=== PATIENT | female | born 1995 | race African-American/Black ===

== ENCOUNTER 2020-03-10 23:50 | Inpatient (IN) ==
[2020-03-11] MEDS ORDERED: OXYTOCIN/0.9 % SODIUM CHLORIDE 30 UNITS/500 ML BAG IV ONE (00:23)
[2020-03-11] MEDS ORDERED: ONDANSETRON 4 MG TAB.RAPDIS PO PRN (00:23)
[2020-03-11] MEDS ORDERED: RINGER'S SOLUTION,LACTATED 1,000 ML IV ONE (00:23)
[2020-03-11] MEDS ORDERED: LIDOCAINE HCL 50 ML VIAL PERI PRN (00:23)
[2020-03-11 00:58] LABS: Cocaine Ur Negative (NEGATIVE); Urine Barbiturate Negative (NEGATIVE); Urine Benzodiazepines Negative (NEGATIVE); Urine Opiates Negative (NEGATIVE); Urine PCP Negative (NEGATIVE); Urine THC Negative (NEGATIVE)
[2020-03-11] MEDS ORDERED: NALOXONE HCL 1 MG/1 ML SYRG IV PRN (01:02)
[2020-03-11] MEDS ORDERED: ONDANSETRON HCL/PF 2 MG/ML VIAL IV PRN ×2 (01:02→04:10)
[2020-03-11] MEDS ORDERED: BUPIVACAINE HCL/0.9 % NACL/PF 250 ML EP PRN (01:02)
[2020-03-11] MEDS ORDERED: fentaNYL CITRATE/PF 50 MCG/ML AMPUL IT SCH (01:15)
[2020-03-11] MEDS ORDERED: RINGER'S SOLUTION,LACTATED 1,000 ML IV PRN (01:41)
[2020-03-11 01:58] LABS: Hematocrit 33.2 % (37.0-47.0); Hemoglobin 11.7 gm/dL (12.5-16.0); Mean Cell Volume 82.4 fl (78-100); Mean Corpuscular Hgb Conc 35.2 g/dl (32-36); Mean Platelet Volume 11.9 fl (8-12.5); Neutrophil # 7.1 K/mm3 (1.3-6.0); Neutrophil % 65.3 % (42-75.0); Platelet Count 204 K/mm3 (150-450); Red Blood Count 4.03 M/mm3 (4.2-5.4); Red Cell Distribution Width 12.9 % (11.5-14.0); White Blood Count 10.8 K/mm3 (4.0-10.5)
--- NOTE | 2020-03-11 02:10 | HP ---
Chief Complaint - Chief Complaint Date of Service: 03/11/20 Time of Service: 01:43 Chief Complaint: LOF, painful contractions History of Present Illness: 24 yo at 38w1d presents to L&D compliaining of ROM around 2300 last night with painful contractions starting afterward. Called by nurse to confirm position of baby. Bedside ultrasound shows baby in breech presentation. This complicated by breech presentation in labor with ROM, ADHD, anemia, smoker, and THC use in 1st trimester. Rh positive Rubella immune GBS negative. Medical History (Last Reviewed 03/11/20 @ 02:00 by Kulwant Cummins DO) ADHD (attention deficit hyperactivity disorder) Facial tic Insomnia Mood disorder Oppositional defiant disorder Seasonal allergies Surgical History: Surgical History (Last Reviewed 03/11/20 @ 02:00 by Kulwant Cummins DO) H/O arthroscopy of right knee Onset Date: ~2012 Dr. Maldonado 2012, Dr. Brennan 2014 History of adenoidectomy Onset Date: ~2000 x2 History of arthroscopy of left knee Onset Date: ~2015 Dr. Brennan-09/2015, 02/2016 History of myringotomy History of tonsillectomy Family History: Family History (Last Reviewed 03/11/20 @ 02:00 by Kulwant Cummins DO) Mother Hypotension Father No problems noted. Social History: (Last Reviewed 03/11/20 @ 02:00 by Kulwant Cummins DO) Social History: adopted: No Marital status: Single household members: friend(s) number of children: 0 current occupational status: employed current occupation: factory Highest education level completed: some college, no degree Sexually Active: Yes Service: No Tobacco: Smoking Status: Current every day smoker tobacco type: cigarettes Alcohol: alcohol intake: former details: stopped with Substance Use: substance use type: marijuana Dietary Habits: caffeine: Yes caffeine comment: 2 daily Type: carbonated beverages Pets: pets and animals: cat(s) Review Of Systems (GEN) - Review of Systems Generalized/Overall Review: Present: No Symptoms Reported EENTM: Present: No Symptoms Reported Respiratory: Present: No Symptoms Reported Cardiac: Present: No Symptoms Reported Abdominal: Present: Other - painful contractions Genitourinary: Present: Other - leaking clear fluid since 2300 on 03/10/20. Musculoskeletal: Present: No Symptoms Reported Neurological: Present: Anxiety Skin: Present: No Symptoms Reported Endocrine: Present: No Symptoms Reported Immunizations: IMMUNIZATION HX Immunizations Up to Date Yes History of Influenza Vaccine Yes Allergies/Adverse Reactions: Allergies Allergy/AdvReac Type Severity Reaction Status Date / Time codeine Allergy Hives Verified 03/07/20 11:09 Home Medications: HOME MEDICATIONS buspirone 15 mg tablet 15 mg PO BID #30 tab 12/07/19 [Last Taken 12/11/19] prenat.vits,panchito,[id number] 1 tab PO DAILY 01/18/20 [Last Taken Unknown] Ferrous Sulfate [Iron] 325 mg PO ONCE 03/11/20 [Last Taken Unknown] Exam - Exam Vital Signs: Vital Signs - Last Taken Temp 37.2 C 03/11/20 01:01 Pulse 86 03/11/20 01:01 Resp 22 H 03/11/20 01:01 BP 135/88 03/11/20 01:01 Pulse Ox 99 03/11/20 01:01 Constitutional: Present: Alert, Oriented x3, Cooperative, Moderate distress - anxious and in pain with contractions ENT Exam: Present: hearing grossly normal Breasts: Present: Exam deferred Respiratory: Present: lungs clear, no respiratory distress Cardiovascular/Chest: Present: normal peripheral pulses, no edema, tachycardia, other - regular rhythm Abdomen: Present: soft, nontender, no rebound tenderness, other - gravid /Rectal: Present: Other - Vaginal pooling of clear fluid with gross ROM, Cervix 2-3/60/-2. Extremity: Present: no pedal edema, no calf tenderness Skin Exam: Present: normal color, warm/dry, no cyanosis Lymphatic: Present: no adenopathy Neurologic: Present: alert, oriented x 3, other - anxious Appearance: Present: appropriate appearance, appropriate insight Eye contact: Present: cooperative, good eye contact Thoughts: Present: normal thought pattern Diagnostic Studies: Laboratory Results Urine Opiates Screen Negative (NEGATIVE) 03/11/20 00:26 Barbiturate Screen Negative (NEGATIVE) 03/11/20 00:26 Ur Phencyclidine Scrn Negative (NEGATIVE) 03/11/20 00:26 Urine Amphetamine Negative (NEGATIVE) 03/11/20 00:26 U Benzodiazepines Scrn Negative (NEGATIVE) 03/11/20 00:26 Urine Cocaine Screen Negative (NEGATIVE) 03/11/20 00:26 Urine Marijuana (THC) Negative (NEGATIVE) 03/11/20 00:26 Assessment/Plan - Assessment/Plan (1) PROM (premature rupture of membranes) Assessment: Admit patient for primary LTCS due to breech presentation in labor with ruptured membranes. The risks, benefits, and alternatives were discussed with the patient and her mother. All questions answered. Will proceed with emergent LTCS. Problem: Acute Qualifiers: PROM onset of labor timing: onset of labor within 24 hours of rupture (2) Breech presentation, no version Problem: Acute Qualifiers: Fetus number: single or unspecified fetus Qualified Code(s): O32.1XX0 - M aternal care for breech presentation, not applicable or unspecified (3) Labor established Problem: Acute (4) Anemia Problem: Acute Qualifiers: Anemia type: iron deficiency Iron deficiency anemia type: inadequate dietary iron intake Qualified Code(s): D50.8 - Other iron deficiency anemias (5) ADD (attention deficit disorder) Problem: Acute Qualifiers: Hyperactivity presence: unspecified Qualified Code(s): F98.8 - Other specified behavioral and emotional disorders with onset usually occurring in childhood and adolescence (6) Smoker Problem: Chronic (7) Marijuana use Problem: Inactive
--- NOTE | 2020-03-11 02:18 | ANES ---
Anesthesia Pre Procedure Eval Vitals/Labs: Last Vital Signs Temp 37.2 C 03/11/20 01:01 Pulse 86 03/11/20 01:01 Resp 22 H 03/11/20 01:01 BP 135/88 03/11/20 01:01 Pulse Ox 99 03/11/20 01:01 HOME MEDICATIONS buspirone 15 mg tablet 15 mg PO BID #30 tab 12/07/19 [Last Taken 12/11/19] prenat.vits,panchito,[id number] 1 tab PO DAILY 01/18/20 [Last Taken Unknown] Ferrous Sulfate [Iron] 325 mg PO ONCE 03/11/20 [Last Taken Unknown] Allergies/Adverse Reactions: Allergies Allergy/AdvReac Type Severity Reaction Status Date / Time codeine Allergy Hives Verified 03/07/20 11:09 - Planned Procedure Planned Procedure: labor Medication List Reviewed:: Yes Allergies Verified: Yes Medical History (Last Reviewed 03/11/20 @ 02:17 by Vinny Horne CRNA) ADHD (attention deficit hyperactivity disorder) Facial tic Insomnia Mood disorder Oppositional defiant disorder Seasonal allergies Surgical History (Last Reviewed 03/11/20 @ 02:17 by Vinny Horne CRNA) H/O arthroscopy of right knee Onset Date: ~2012 Dr. Maldonado 2012, Dr. Brennan 2014 History of adenoidectomy Onset Date: ~2000 x2 History of arthroscopy of left knee Onset Date: ~2015 Dr. Brennan-09/2015, 02/2016 History of myringotomy History of tonsillectomy Family History (Last Reviewed 03/11/20 @ 02:17 by Vinny Horne CRNA) Mother Hypotension Father No problems noted. - Family Anesthesia History Family History:: no untoward family reactions to anesthesia, no familial bleeding tendencies, no family history of clotting disorders, no family history of premature - Airway/Neck/Teeth Within Normal Limits:: Yes Teeth Condition: intact Neck Exam: full range of motion Mallampatti Score: 2 Thyromental (T-M) distance: > 6 cm Mandibulo Hyoid distance: > 3 cm - Respiratory Respiratory Physical: lungs clear Smoking Status: Never smoker Sleep Apnea currently treated: No Sleep Apnea by current assessment: No - Cardiovascular Tolerate Activity: Fair Heart Sounds: S1 & S2, Regular - Gastrointestinal NPO since: 2400 - Anesthesia Assessment and Plan ASA Class: PS, II, E Anesthesia Type Plan: Block - Bilateral TAP block for post op pain relief, Spinal
[2020-03-11] MEDS ORDERED: Oxytocin/Ringers Lactate 20 UNITS/1,000 ML BAG IV ONE (02:22)
[2020-03-11] MEDS ORDERED: PHENYLEPHRINE HCL 10 MG/ML AMPUL ONE (02:29)
[2020-03-11] MEDS ORDERED: BUPIVACAINE HCL/EPINEPHRINE 50 ML VIAL ONE (02:30)
--- NOTE | 2020-03-11 04:09 | OR ---
Operative Report - Dictated Report Narrative: Indication: 24-year old 2 para 0 presents to labor and delivery in active labor with ruptured membranes with baby in breech presentation. Status: Emergent Pre Operative Diagnosis: 38 to 7-week intrauterine . Breech presentation. Active labor with ruptured membranes. Post Operative Diagnosis: Same. Procedure Preformed: Primary Low Transverse Section Surgeon: Saravanan Cummins DO Truck Leasing Manager: OR Staff Anesthesia: Spinal,TAP block Estimated Blood Loss: 200 mL Urine Output: 300 mL of clear urine Fluids Given: 1300 mL of crystalloid Drains: Spaulding to gravity Surgical Complications: None Specimens: Placenta to freezer Findings: Female born at 0306 on 03/11/2018 with Apgars 8 and 8, weighing 2560 g in left footling breech presentation. Normal uterus, tubes, ovaries. Technique: The patient was taken to the operating room and placed in dorsal supine position with a left lateral tilt. After adequate spinal anesthesia, spaulding catheter insertion,SCDs placed, 500 mg of Zithromax IV started and 2 g of Ancef given preoperatively, the abdominal cavity was entered via a modified Rehan-Rodriguez incision. Two rolled laps were placed in the pericolic gutters on either side of the uterus. A transverse incision was made in the lower uterine segment and extended laterally and upwardly with digital traction. Clear fluid was noted upon amniotomy. The left foot was deep in the pelvis with the right foot up by the head. The buttocks was delivered followed by the feet, body, left then right shoulders, and head without difficulty. The cord was clamped and cut and was handed off to awaiting steam table associate. The placenta was allowed to deliver spontaneously. The uterus was cleared of clot and debris. Uterine incision was closed with 0 Vicryl using a running stitch. A second imbricating layer was placed. Excellent hemostasis was noted. Rolled laps were removed from the abdominal cavitiy. The peritoneum was closed with a running 3- 0 Monocryl. The same suture was used to approximate the rectus and pyramidalis muscles. The fascia was closed with a running 0 Vicryl. The subcutaneous layer was closed with a running 3-0 Monocryl. The same suture was used to approximate the subdermal layer. The skin was closed with a running 4-0 Monocryl and Dermabond. Sponge, lap, needle, and instrument count were correct x 2. Disposition: The patient was transferred to post anesthesia care unit in good condition
[2020-03-11] MEDS ORDERED: SENNOSIDES 8.6 MG TABLET PO PRN (04:10)
[2020-03-11] MEDS ORDERED: SIMETHICONE 80 MG TAB.CHEW PO PRN (04:10)
[2020-03-11] MEDS ORDERED: BISACODYL 10 MG SUPP.RECT RC PRN (04:10)
[2020-03-11] MEDS ORDERED: IBUPROFEN 800 MG TABLET PO PRN (04:10)
--- NOTE | 2020-03-11 04:17 | ANES ---
Post Anesthesia Discharge - Transfer of Care Transfer of Care handoff given to nurse: Yes - Discharge from PACU Discharge from PACU when meets criteria: Yes - Comfortable
--- NOTE | 2020-03-11 04:17 | ANES ---
Anesthesia Procedure Note Procedure Note: ANESTHESIA PROCEDURE NOTE Date of Procedure: 03/10/2020 Time of procedure: 4:00 a.m. Performed by: RAYRAY Andino CRNA, MSN Naturopathic Oncology Provider: Tosha Silva RN. Preprocedure diagnosis: Post section pain. Post procedure diagnosis: Same. Procedure: Bilateral TAP block Indications: Post section pain relief. Findings: See below. Details of the procedure: The patient was brought to PACU and placed in the supine position. The patient was prepped with chlorhexidine and using ultrasound guidance the 3 abdominal muscular planes were identified and lidocaine 1% was infiltrated to the skin of the intended injection site. Under ultrasound guidance the the internal oblique and transverse this abdominis muscle layers were approached with visualization of a 4 inch block needle until the tip of the needle rested in the plane between the muscles. 25 mL bupivacaine 0.5% with 1-200,000 epinephrine was injected and the procedure was repeated on the other side. Please see radiology/ultrasound report for details and images of the procedure. EBL: 0 Fluids: N/A. Specimen: N/A. Post procedure condition: The patient tolerated the procedure well. No complications were noted. Thank you for this consultation. Vinny Horne CRNA, ARNP, MSN
--- NOTE | 2020-03-11 04:26 | ANES ---
Post Anesthesia Assessment - Vital Signs Vitals: Last Vital Signs Temp 37.4 C 03/11/20 04:10 Pulse 70 03/11/20 04:10 Resp 16 03/11/20 04:10 BP 120/72 03/11/20 04:10 Pulse Ox 100 03/11/20 04:10 Airway Patency: Normal - Mental Status Level Of Consciousness: Awake, Alert, Appropriate - Pain Level Pain Score: 0 - N/V Assessment Nausea/Vomiting Presence: None Dehydration:: No
[2020-03-11] MEDS: IBUPROFEN 800 MG TABLET PO PRN ×3 (04:58→17:48)
[2020-03-11] MEDS: ACETAMINOPHEN 500 MG TABLET PO PRN ×3 (05:05→17:48)
[2020-03-11] MEDS ORDERED: AZITHROMYCIN 500 MG in DEXTROSE 5 % IN WATER 250 ML IV PRN ×2 (06:00)
[2020-03-11] MEDS ORDERED: ceFAZolin SODIUM 1 GM VIAL IV PRN (06:00)
[2020-03-11] MEDS: HYDROmorphone HCL 2 MG TABLET PO PRN ×4 (06:14→22:59)
[2020-03-11] MEDS: DOCUSATE SODIUM 100 MG CAPSULE PO SCH ×2 (10:22→20:11)
--- NOTE | 2020-03-11 10:50 | PN ---
Subjective - Date and Time Seen Date: 03/11/20 Time: 10:48 Subjective Narrative: The patient is doing well Objective Objective Narrative: See vital signs - Review of Systems Generalized/Overall Review: Reports: No Symptoms Reported Misc: All systems neg except as marked - Vitals Vitals: Last Vital Signs Temp 36.8 C 03/11/20 07:57 Pulse 71 03/11/20 07:57 Resp 16 03/11/20 07:57 BP 132/84 03/11/20 07:57 Pulse Ox 96 03/11/20 07:57 - Abnormal Lab Findings Abnormal Lab Findings: Abnormal Lab Results 03/11/20 Range/Units 01:55 WBC 10.8 H (4.0-10.5) K/mm3 RBC 4.03 L (4.2-5.4) M/mm3 Hgb 11.7 L (12.5-16.0) gm/dL Hct 33.2 L (37.0-47.0) % Immature Gran % (Auto) 0.60 H (0.001-0.429) % Immature Gran # (Auto) 0.07 H (0.000-0.0310) K/mm3 Neutrophils # 7.1 H (1.3-6.0) K/mm3 - Exam Constitutional: Present: Alert, Oriented x3, Cooperative, No distress ENT Exam: Present: hearing grossly normal Abdomen: Present: soft, nontender, nondistended Extremity: Present: non-tender, no calf tenderness Skin Exam: Present: normal color, warm/dry, no cyanosis Neurologic: Present: alert, normal mood/affect, oriented x 3 Eye contact: Present: cooperative, good eye contact, normal speech Thoughts: Present: normal thought pattern Cauti Physician Documentation - Urinary Catheter Management Urethral (Luciano) Urethral Indwelling: Yes Assessment/Plan Plan Narrative: POD 0 s/p primary delivery Doing well Pain well controlled Discharge POD 3
[2020-03-11] MEDS: busPIRone HCL 5 MG TABLET PO SCH (21:50)
[2020-03-12] MEDS: IBUPROFEN 800 MG TABLET PO PRN ×3 (04:01→23:58)
[2020-03-12] MEDS: ACETAMINOPHEN 500 MG TABLET PO PRN ×2 (04:01→15:57)
--- NOTE | 2020-03-12 07:59 | PN ---
Subjective - Date and Time Seen Date: 03/12/20 Time: 07:58 Objective - Vitals Vitals: Last Vital Signs Temp 36.7 C 03/11/20 15:13 Pulse 68 03/12/20 01:12 Resp 16 03/12/20 01:12 BP 135/85 03/12/20 01:12 Pulse Ox 98 03/12/20 01:12 Patient denies complaints. Tolerating regular diet. Ambulating without difficulty. Pain well controlled. Lochia wnl. Abdomen - soft, appropriately tender Incision -clean, dry, intact uterus - firm, at umbilicus -1 No calf tenderness Impression: Post op day #1 s/p primary section for breech presentation in labor. Smoker Plan: Continue routine post-operative/ care. Counseled about smoking and risks. Cauti Physician Documentation - Urinary Catheter Management Urethral (Luciano) Urethral Indwelling: Yes Date of Insertion: 03/11/20 Time of Insertion: 02:50 Date of Removal: 03/11/20 Time of Removal: 15:00 Assessment/Plan - Problems/Diagnosis (1) PROM (premature rupture of membranes) Problem: Acute Qualifiers: PROM onset of labor timing: onset of labor within 24 hours of rupture (2) Breech presentation, no version Problem: Acute Qualifiers: Fetus number: single or unspecified fetus Qualified Code(s): O32.1XX0 - Maternal care for breech presentation, not applicable or unspecified (3) Labor established Problem: Acute (4) Anemia Problem: Acute Qualifiers: Anemia type: iron deficiency Iron deficiency anemia type: inadequate dietary iron intake Qualified Code(s): D50.8 - Other iron deficiency anemias (5) ADD (attention deficit disorder) Problem: Acute Qualifiers: Hyperactivity presence: unspecified Qualified Code(s): F98.8 - Other specified behavioral and emotional disorders with onset usually occurring in childhood and adolescence (6) Smoker Problem: Chronic (7) Marijuana use Problem: Inactive
[2020-03-12] MEDS: PRENATAL VITS96/IRON FUM/FOLIC 1 TAB TABLET PO SCH (08:51)
[2020-03-12] MEDS: DOCUSATE SODIUM 100 MG CAPSULE PO SCH ×2 (08:51→21:07)
[2020-03-12] MEDS: busPIRone HCL 5 MG TABLET PO SCH ×3 (08:52→20:59)
[2020-03-12] MEDS: HYDROmorphone HCL 2 MG TABLET PO PRN ×3 (10:45→23:58)
--- NOTE | 2020-03-12 15:54 | PN ---
Subjective - Date and Time Seen Date: 03/12/20 Time: 15:52 Subjective Narrative: The patient is doing well Objective Objective Narrative: See vital signs - Review of Systems Generalized/Overall Review: Reports: No Symptoms Reported Misc: All systems neg except as marked - Vitals Vitals: Last Vital Signs Temp 37.0 C 03/12/20 14:07 Pulse 73 03/12/20 14:07 Resp 16 03/12/20 14:07 BP 136/87 03/12/20 14:07 Pulse Ox 98 03/12/20 14:07 - Exam Constitutional: Present: Alert, Oriented x3, Cooperative, No distress Abdomen: Present: soft, nontender, nondistended - incision c/d/i Extremity: Present: non-tender, no calf tenderness Skin Exam: Present: normal color, warm/dry, no cyanosis Neurologic: Present: alert, normal mood/affect, oriented x 3 Appearance: Present: appropriate appearance, appropriate insight, neat, no memory impairment Eye contact: Present: cooperative, good eye contact, normal speech Thoughts: Present: normal thought pattern Cauti Physician Documentation - Urinary Catheter Management Urethral (Luciano) Urethral Indwelling: No Date of Insertion: 03/11/20 Time of Insertion: 02:50 Date of Removal: 03/11/20 Time of Removal: 15:00 Assessment/Plan Plan Narrative: POD 1 s/p repeat delivery Doing well Discharge tomorrow
--- NOTE | 2020-03-13 07:50 | PN ---
Subjective - Date and Time Seen Date: 03/13/20 Time: 07:49 Subjective Narrative: The patient is doing well Objective Objective Narrative: See vital signs - Review of Systems Generalized/Overall Review: Reports: No Symptoms Reported Misc: All systems neg except as marked - Vitals Vitals: Last Vital Signs Temp 37.2 C 03/13/20 00:00 Pulse 73 03/13/20 00:00 Resp 16 03/13/20 00:00 BP 133/74 03/13/20 00:00 Pulse Ox 99 03/13/20 00:00 - Exam Constitutional: Present: Alert, Oriented x3, Cooperative, No distress ENT Exam: Present: hearing grossly normal Abdomen: Present: soft, nontender, nondistended - incision c/d/i Extremity: Present: non-tender, no calf tenderness Skin Exam: Present: normal color, warm/dry, no cyanosis Neurologic: Present: alert, normal mood/affect, oriented x 3 Appearance: Present: appropriate appearance, appropriate insight, neat Eye contact: Present: cooperative, good eye contact, normal speech Thoughts: Present: normal thought pattern Cauti Physician Documentation - Urinary Catheter Management Urethral (Luciano) Urethral Indwelling: No Date of Insertion: 03/11/20 Time of Insertion: 02:50 Date of Removal: 03/11/20 Time of Removal: 15:00 Assessment/Plan Plan Narrative: POD 2 s/p primary delivery Doing well Pain well-controlled Discharge instructions given Follow-up in 6 weeks or sooner for any other concerns
--- NOTE | 2020-03-13 07:51 | DS ---
OB Discharge Summary Delivery Date: 03/11/20 Delivery Time: 03:06 Procedures: None - Discharge Information Date of Discharge: 03/13/20 Discharge Location: Home Disposition: Home self-care Condition: Good Referrals: Sally Madden DO [Primary Care Provider] - Activity on Discharge:: Activity as tolerated, Pelvic Rest Discharge Diet: General/regular food Prescriptions (Any new or edited meds): HYDROmorphone HCL [Dilaudid] 2 mg PO Q6H PRN 6 Days #14 tab PRN Reason: Pain Transmission Status: Received by [facility] #[id number] Complete Home Medications List: Complete Home Medication List: buspirone 15 mg tablet 15 mg PO BID #30 tab 12/07/19 prenat.vits,panchito,[id number]-[id number]-jqrtk 1 tab PO DAILY 01/18/20 HYDROmorphone HCL [Dilaudid] 2 mg PO Q6H PRN 6 Days #14 tab 03/11/20 Ibuprofen [Motrin] 800 mg PO Q6H PRN tab 03/11/20 Ibuprofen [Motrin] 800 mg PO Q6H PRN tab 03/11/20 - Plan Discharge to:: Home Follow up in office in:: 6 weeks Weight (Grams): 2,560 Infant Sex: Female Score 1 min: 8 Score 5 min: 8 Circumcision: Not Applicable Infant Complications: None Other Complications: terminal meconium
[2020-03-13] MEDS: HYDROmorphone HCL 2 MG TABLET PO PRN (09:18)
[2020-03-13] MEDS: IBUPROFEN 800 MG TABLET PO PRN (09:18)
[2020-03-13] MEDS: busPIRone HCL 5 MG TABLET PO SCH (09:18)
[2020-03-13] MEDS: DOCUSATE SODIUM 100 MG CAPSULE PO SCH (09:19)
[2020-03-13] MEDS: PRENATAL VITS96/IRON FUM/FOLIC 1 TAB TABLET PO SCH (09:19)
[2020-03-13 12:17] VITALS: BP 120/64
== END 2020-03-13 12:00 | disposition home or self-care (01) | DRG 788 ==
LOC: OB 23:50
PROVIDERS: ADMIT Obstetrics & Gynecology; ATTEND Obstetrics & Gynecology